=== PATIENT | female | born 1990 | race African-American/Black ===

== ENCOUNTER 2023-10-03 09:37 | Emergency (ER) | payer MEDICAID, OTHER ==
[~2023-10-03] VITALS: Ht 165.1 cm; Wt 75.0 kg
[2023-10-03 09:39] VITALS: O2SAT 96
[2023-10-03 10:46] LABS: CHLORIDE 103 mEq/L (98-107); POTASSIUM 3.4 mEq/L (3.5-5.1); SODIUM 135 mEq/L (136-145)
[2023-10-03 10:48] LABS: BASOPHILS % 0.3 % (0.0-2.0); CALCIUM 9.7 mg/dL (8.7-10.4); CARBON DIOXIDE 27 mEq/L (21-32); EOSINOPHILS % 0.1 % (0.0-5.0); HEMATOCRIT. 41.1 % (36.0-48.0); HEMOGLOBIN. 13.3 g/dL (12.0-16.0); LYMPHOCYTES % 17.1 % (20.0-50.0); MEAN CORPUSCULAR HEMOGLOBIN 27.8 pg (28.0-32.0); MEAN CORPUSCULAR HGB CONC 32.2 g/dL (31.0-37.0); MEAN CORPUSCULAR VOLUME 86.3 fL (81.0-99.0); MEAN PLATELET VOLUME 9.4 fl (7.4-10.4); MONOCYTES % 5.7 % (2.0-8.0); NEUTROPHILS % 76.8 % (40.0-76.0); PLATELET 191 x1000/uL (130-400); RED BLOOD CELL COUNT 4.77 mill/uL (4.2-5.4); RED CELL DISTRIBUTION WIDTH 13.3 % (11.6-14.6); WHITE BLOOD COUNT 8.6 x1000/uL (4.5-11.0)
[2023-10-03 10:53] LABS: CREATININE 0.9 mg/dL (0.6-1.0); GLUCOSE 105 mg/dL (70-105); UREA NITROGEN BLOOD 6 mg/dL (9-23)
[2023-10-03 10:55] LABS: ALANINE AMINOTRANSFERASE 17 IU/L (10-49); ALBUMIN 4.8 g/dL (3.2-4.8); ASPARTATE AMINOTRANSFERASE 18 IU/L (<34); BILIRUBIN DIRECT 0.3 mg/dL (<=3.0); PROTEIN TOTAL 7.6 g/dL (6.0-8.3)
[2023-10-03] MEDS: ACETAMINOPHEN 325MG TABLET PO ONE (11:15)
[2023-10-03] MEDS: ONDANSETRON HCL 4MG/2ML INJ IV ONE (11:16)
[2023-10-03] MEDS: LACTATED RINGERS 1,000 ML IV SCH (11:16)
[2023-10-03 11:17] LABS: HCG SCREEN NEGATIVE
[2023-10-03] MEDS: HALOPERIDOL LACTATE 5MG/ML VIAL IM ONE (13:06)
[2023-10-03] MEDS ORDERED: METO-293 MT (14:00)
[2023-10-03 14:02] VITALS: BP 123/76; PULSE 64; RESP 18; TEMP 36.78072; O2SAT 96
== END 2023-10-03 14:27 | disposition home or self-care (01) ==
LOC: ER 09:37
DX: R10.84 Generalized abdominal pain (principal); R19.7 Diarrhea, unspecified; R11.2 Nausea with vomiting, unspecified; Z86.39 Personal history of other endocrine, nutritional and metabolic disease
CPT/HCPCS: 80076; 80048; 84703; 83690; 85025; 36415; 74176; 96361; 96372; 96374; 99285; J1630; J2405; Z7610 ×3